=== PATIENT | female | born 1950 | race Caucasian/White ===

== ENCOUNTER 2020-01-25 12:00 | Inpatient (IN) ==
[2020-01-25] MEDS ORDERED: ONDANSETRON 4 MG/2 ML VIAL IV STA (12:51)
[2020-01-25] MEDS ORDERED: HYDROmorphone 2 MG/1 ML VIAL IV STA (12:51)
[2020-01-25 14:43] LABS: Basophils # 0.1 10*3/uL (0.0-0.2); Basophils % 0.4 % (0.0-0.8); Eosinophils # 0.2 10*3/uL (0.0-0.87); Eosinophils % 1.3 % (0.00-10.9); Hematocrit 37.3 VOL% (35.7-47.0); Hemoglobin 12.4 GM/DL (12.0-16.0); Immature Granulocytes % 0.3 %; Immature Granulocytes Absolute 0.04 #; Lymphocytes # 1.7 10*3/uL (1.4-4.0); Mean Corpuscular HGB Conc 33.2 GM/DL (32-36); Mean Corpuscular Volume 92.6 FL (87-102); Mean Platelet Volume 9.5 FL (9.6-12.0); Monocytes % 6.8 % (1.7-12.7); Neutrophils % 78.2 % (38.7-73.9); Platelet Count 285 T/CUMM (130-400); Red Blood Count 4.03 MC/CUMM (3.8-5.5); Red Cell Distribution Width 12.3 % (9.3-17.3); White Blood Count 12.8 T/CUMM (4-12)
[2020-01-25 15:12] LABS: Osmolality,Calculated 275.5 MOS/KG (273-304)
[2020-01-25] MEDS ORDERED: GLUCAGON 1 MG VIAL IM PRN (16:12)
[2020-01-25] MEDS ORDERED: DEXTROSE 50% 25 GM/50 ML VIAL IV PRN (16:12)
[2020-01-25] MEDS ORDERED: ACETAMINOPHEN 325 MG TABLET PO PRN (16:18)
[2020-01-25] MEDS ORDERED: hydrALAZINE 20 MG/1 ML VIAL IV PRN (16:18)
[2020-01-25] MEDS: INSULIN LISPRO 100 UNIT/ML SUBCUT SCH ×2 (17:40→20:59)
[2020-01-25] MEDS: ONDANSETRON 4 MG/2 ML VIAL IV PRN (19:02)
[2020-01-25] MEDS: MORPHINE 4 MG/1 ML VIAL IV PRN (19:03)
[2020-01-25] MEDS ORDERED: ENOXAPARIN 40 MG/0.4 ML SYRINGE SUBCUT SCH (21:00)
[2020-01-25 23:09] LABS: Amorphous Crystals,Urine Occasional /HPF (Few); Bilirubin,Urine Negative (Negative); Blood, Urine Negative (Negative); Calcium Oxalate Crystals,Urine Occasional /HPF (Few); Glucose,Urine (UA) Negative (Negative); Ketones,Urine Negative (Negative); Mucus,Urine Many /LPF (Occasional); Nitrite,Urine Negative (Negative); Protein,Urine Negative; RBC,Urine 6 /HPF (0-4); Squamous Epithelial Cell,Urine Occasional /HPF (0-10); Urine Appearance CLOUDY (Clear); Urine Color Yellow (Yellow); Urine Specific Gravity 1.021 (1.001-1.035); Urine Urobilinogen < 2.0 EU/DL (0.2-1.0); WBC,Urine 7 /HPF (0-6)
[2020-01-26] MEDS: ONDANSETRON 4 MG/2 ML VIAL IV PRN ×2 (03:10→22:07)
[2020-01-26] MEDS: MORPHINE 4 MG/1 ML VIAL IV PRN ×3 (03:11→22:04)
[2020-01-26 06:21] LABS: Basophils # 0.1 10*3/uL (0.0-0.2); Basophils % 0.8 % (0.0-0.8); Eosinophils # 0.4 10*3/uL (0.0-0.87); Eosinophils % 5.5 % (0.00-10.9); Hematocrit 34.9 VOL% (35.7-47.0); Hemoglobin 11.4 GM/DL (12.0-16.0); Immature Granulocytes % 0.3 %; Immature Granulocytes Absolute 0.02 #; Lymphocytes # 1.4 10*3/uL (1.4-4.0); Lymphocytes % 22.4 % (21.3-54.2); Mean Corpuscular HGB Conc 32.7 GM/DL (32-36); Mean Corpuscular Volume 93.1 FL (87-102); Mean Platelet Volume 9.5 FL (9.6-12.0); Monocytes % 10.7 % (1.7-12.7); Neutrophils % 60.3 % (38.7-73.9); Platelet Count 222 T/CUMM (130-400); Red Blood Count 3.75 MC/CUMM (3.8-5.5); Red Cell Distribution Width 12.5 % (9.3-17.3); White Blood Count 6.4 T/CUMM (4-12)
[2020-01-26 06:56] LABS: Albumin 3.3 G/DL (3.4-5.0); Bilirubin,Total 0.8 MG/DL (0.2-1.0); Calcium 9.5 MG/DL (8.5-10.1); Osmolality,Calculated 278.4 MOS/KG (273-304); Risk Ratio 5.11; Thyroid Stimulating Hormone 1.47 uIU/ml (0.358-3.74); Total Protein 5.8 G/DL (6.4-8.3); VLDL CHOLESTEROL 25.6 MG/DL
[2020-01-26] MEDS ORDERED: NITROGLYCERIN SL 0.4 MG TABLET SL PRN (07:43)
[2020-01-26] MEDS: INSULIN LISPRO 100 UNIT/ML SUBCUT SCH ×4 (08:25→21:06)
[2020-01-26] MEDS: ASPIRIN EC 81 MG TABLET PO SCH (10:24)
[2020-01-26] MEDS: NEBIVOLOL 10 MG TABLET PO SCH (10:25)
[2020-01-26] MEDS: CLOPIDOGREL 75 MG TABLET PO SCH (10:25)
[2020-01-26] MEDS ORDERED: LOSARTAN 25 MG TABLET PO SCH (21:00)
[2020-01-27 06:15] LABS: Basophils % 0.5 % (0.0-0.8); Eosinophils # 0.4 10*3/uL (0.0-0.87); Eosinophils % 5.4 % (0.00-10.9); Hematocrit 33.9 VOL% (35.7-47.0); Hemoglobin 11.3 GM/DL (12.0-16.0); Immature Granulocytes % 0.3 %; Immature Granulocytes Absolute 0.02 #; Lymphocytes # 1.3 10*3/uL (1.4-4.0); Lymphocytes % 20.3 % (21.3-54.2); Mean Corpuscular HGB Conc 33.3 GM/DL (32-36); Mean Corpuscular Volume 92.4 FL (87-102); Mean Platelet Volume 9.5 FL (9.6-12.0); Monocytes % 9.8 % (1.7-12.7); Neutrophils % 63.7 % (38.7-73.9); Platelet Count 205 T/CUMM (130-400); Red Blood Count 3.67 MC/CUMM (3.8-5.5); Red Cell Distribution Width 12.2 % (9.3-17.3); White Blood Count 6.5 T/CUMM (4-12)
[2020-01-27 06:37] LABS: Albumin 2.9 G/DL (3.4-5.0); Bilirubin,Total 0.7 MG/DL (0.2-1.0); Calcium 9.5 MG/DL (8.5-10.1); Osmolality,Calculated 282.1 MOS/KG (273-304); Total Protein 5.9 G/DL (6.4-8.3)
[2020-01-27] MEDS: INSULIN LISPRO 100 UNIT/ML SUBCUT SCH ×2 (08:08→11:53)
[2020-01-27] MEDS: CLOPIDOGREL 75 MG TABLET PO SCH (09:09)
[2020-01-27] MEDS: ASPIRIN EC 81 MG TABLET PO SCH (09:09)
[2020-01-27] MEDS: NEBIVOLOL 10 MG TABLET PO SCH (09:09)
[2020-01-27 12:01] VITALS: BP 128/44
== END 2020-01-27 16:00 | disposition home health service (06) | DRG 563 ==
LOC: N.ED 12:00 → N.EDINP 16:18 → N.3E 17:26
PROVIDERS: ADMIT Internal Medicine; ATTEND Internal Medicine